=== PATIENT | female | born 1995 ===

== ENCOUNTER 2018-11-26 06:52 | Emergency (ER) | payer BC ==
[~2018-11-26] VITALS: Ht 172.7 cm; Wt 70.3 kg
[~2018-11-26 06:52] MED LIST: LEVAQUIN500 MG PO; SINGULAIR 5MG5 MG
== END 2018-11-26 11:00 | disposition home or self-care (01) ==
LOC: ER 06:52
DX: H10.89 Other conjunctivitis (principal)